=== PATIENT | female | born 1955 | race Caucasian/White ===

== ENCOUNTER 2017-08-18 21:19 | Emergency (ER) | payer SELFPAY ==
[2017-08-18 21:32] VITALS: RESP 16; O2SAT 96
[2017-08-18] MEDS ORDERED: KETOROLAC 15 MG/1 ML SDV IVP ONE (21:42)
[2017-08-18] MEDS ORDERED: HALOPERIDOL LACT 5 MG/ML INJ IVP ONE (21:44)
[2017-08-18] MEDS ORDERED: NS 1,000 ML IV ONE (21:45)
--- NOTE | 2017-08-18 22:01 | EDPHY ---
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 Time Seen by Provider: 08/18/17 21:33 HPI/ROS: Chief Complaint: Migraine headache HPI: A 58-year-old woman visiting from [facility] with a history of chronic migraine headaches who began having a headache yesterday. Patient took her abortive medication without any relief. Today she has had increasing nausea and vomiting has been able to keep anything down. No fevers or chills. It is an 8 out of 10 in intensity. It is similar to her prior headaches. It was gradual in onset. Is not the worst headache of her life. She has not had any neck pain or stiffness. ROS: 10 point Review of Systems is negative except as noted in the HPI. PMH: Chronic migraine headaches Medications: Nocertone Allergies: None Social History: No smoking, occasional alcohol, no recreational drug use Family History: non-contributory Physical Exam: Gen: Awake, Alert, No Distress HEENT: Nose: no rhinorrhea Eyes: PERRLA, EOMI Mouth: Moist mucosa Neck: Supple, no JVD Chest: nontender, lungs clear to auscultation Heart: S1, S2 normal, no murmur Abd: Soft, non-tender, no guarding Back: no CVA tenderness, no midline tenderness Ext: no edema, non-tender Skin: no rash Neuro: CN II-XII intact, Sensation grossly intact, Strength 5/5 in bilateral upper and lower extremities - Personal History Current Tetanus Diphtheria and Acellular Pertussis (TDAP): Yes - Medical/Surgical History Hx Asthma: No Hx Chronic Respiratory Disease: No Hx Diabetes: No Hx Cardiac Disease: No Hx Renal Disease: No Hx Cirrhosis: No Hx Alcoholism: No Hx HIV/AIDS: No Hx Splenectomy or Spleen Trauma: No Other PMH: colon CA surgery, HAs. - Social History Smoking Status: Never smoked Constitutional: Initial Vital Signs Temperature (C) 37.5 C 08/18/17 21:30 Heart Rate 73 08/18/17 21:30 Respiratory Rate 16 08/18/17 21:30 Blood Pressure 131/71 H 08/18/17 21:30 O2 Sat (%) 96 08/18/17 21:30 O2 Delivery Mode Room Air Allergies/Adverse Reactions: No Known Allergies Allergy (Unverified 08/18/17 21:29) Home Medications: Medication Instructions Recorded Nocertone 08/18/17 Medical Decision Making ED Course/Re-evaluation: Patient is improved after Haldol, Benadryl and Toradol. She is tolerating p.o. fluids. She has received 1 L of normal saline. She will be discharged with a ondansetron take-home pack. She has been instructed follow up with her physician when she returns to [facility] tomorrow. - Data Points Medications Given: Discontinued Medications Diphenhydramine HCl (Benadryl Injection) 25 mg IVP EDNOW ONE Stop: 08/18/17 21:45 Last Admin: 08/18/17 22:02 Dose: 25 mg Haloperidol Lactate (Haldol Injection) 2.5 mg IVP EDNOW ONE Stop: 08/18/17 21:45 Last Admin: 08/18/17 22:02 Dose: 2.5 mg Sodium Chloride (Ns) 1,000 mls @ 0 mls/hr IV ONCE ONE; Wide Open PRN Reason: Protocol Stop: 08/18/17 21:46 Last Admin: 08/18/17 22:02 Dose: 1,000 mls Ketorolac Tromethamine (Toradol) 15 mg IVP EDNOW ONE Stop: 08/18/17 21:43 Last Admin: 08/18/17 22:01 Dose: 15 mg Departure - Departure Disposition: Home, Routine, Self-Care Clinical Impression: Migraine headache Condition: Good Instructions: Migraine Headache (ED) Additional Instructions: You may take ondansetron 1 tablet every 8 hours as needed for nausea and vomiting. Follow up with your primary care physician when you return home tomorrow. Return to the emergency department for worsening headache, uncontrolled nausea or vomiting, fevers, chills, or any other concerns. Referrals: NONE *PRIMARY CARE P,. [Primary Care Provider] - As per Instructions
[2017-08-18] MEDS ORDERED: ONDANSETRON 4MG PREPACK#2 BTL TAKEHOME ONE (22:34)
[2017-08-18 22:56] VITALS: BP 150/74; PULSE 80; TEMP 99.3
== END 2017-08-18 22:57 | disposition home or self-care (01) ==
LOC: CED 21:19
DX: G43.909 Migraine, unspecified, not intractable, without status migrainosus (principal); E86.9 Volume depletion, unspecified
CPT/HCPCS: 96374; J1200; J1885